=== PATIENT | male | born 1985 | race Caucasian/White ===

== ENCOUNTER 2024-07-02 21:33 | Emergency (ER) | payer SELFPAY ==
[2024-07-02 21:34] VITALS: BP 153/94
--- NOTE | 2024-07-02 21:57 | ED.SKININJ ---
HPI-Injury
General
Chief Complaint: Skin Surface Trauma
Source: patient
Exam Limitations: none
Time Seen by Provider: 07/02/24 21:52
Nursing documentation reviewed up to this point in time: agreed with
History of Present Illness-Injury
Is this injury a work related problem?: Yes
Is pt an associate of [facility]/[employer]?: No
Initial Injury comments:
39 yo male cut left middle finger pad on knife at work ([employer]) within the past few hours. Couldn't get it to stop bleeding. Unknown last Tdap.
Past History
Past History
ED Past Medical History: None
ED Past Surgical History: None
Social History
Tobacco: Non-smoker
Alcohol: Occasional
Personal:
Living: with family
Employment: Employed
Review of Systems
Review of Systems
Allergies reviewed?: Yes
All Other Systems: ROS reviewed and negative except as documented in HPI and ROS
Skin: Reports other (cut left middle finger)
Skin Exam
Laceration
Left middle finger pad:
Length in cm: 1
Orientation: horizontal
Type of Laceration: simple
Any active bleeding?: no active bleeding
Distal skin color and temperature: normal-warm & good color
Normal distal neurovascular exam: Yes
Range of motion: full
Phy Exam
Physical Exam
Physical Exam:
PHYSICAL EXAMINATION:
General: no apparent distress, not acutely ill
Neuro: alert and oriented.
Psychiatric: well kept. interactive and cooperative
Musculoskeletal: Moves with ease
Skin: Warm, pink.
Course
Orders/Labs/Results
Orders:
Orders
07/02/24 21:53
Tetanus/Diphth/Acelpertussis [Adacel] 0.5 ml IM .ONCE ONE
Vital Signs
Initial and Last Documented VS:
Initial Vital Signs
Temp Pulse Resp BP Pulse Ox
98.2 F 95 20 153/94 98
07/02/24 21:34 07/02/24 21:34 07/02/24 21:34 07/02/24 21:34 07/02/24 21:34
Last Documented Vital Signs
Temp Pulse Resp BP Pulse Ox
98.2 F 95 20 145/90 98
07/02/24 21:34 07/02/24 21:34 07/02/24 21:34 07/02/24 22:05 07/02/24 21:34
MDM/Problems Addressed
MDM/Problems Addressed:
39 yo male cut left middle finger pad on knife at work ([employer]) within the past few hours. Couldn't get it to stop bleeding. Unknown last Tdap.
No bleeding currently.
Relatively superficial laceration, wound glue applied, Band-Aid and fingertip aluminum splint for protection
Tdap updated
*Critical Care Note
Total Time (30-74mins, 75-104mins- exclusive of procedures): Not Applicable
ED Attending Note
-
Portions of this chart may have been created with voice recognition software.� Occasional wrong word or��sound alike� substitutions may have occurred due to the inherent limitations of voice recognition software.
Discharge Plan
Departure
Patient Disposition: Home (Routine Discharge)
Date of Disposition: 07/02/24
Time of Disposition: 22:02
Patient with high blood pressure during this ER visit?: No
Condition: Good
Discharge Problem:
Laceration of finger
Referrals:
Gerri Pennington CRNP [Family Provider] -
Activity Restrictions/Additional Instructions:
As we discussed, wear the Band-Aid and the fingertip splint as needed for protection.
The glue will slough off within the next week or 2
Interventions
Interventions:
*Risk Screen - Suicide Last Done: 07/02/24 21:49
*General Assessment Last Done: 07/02/24 21:34
*Neglect/Abuse Screening Last Done: 07/02/24 21:49
*ED- Fall Risk Assessment Last Done: 07/02/24 22:06
*ED COVID-19 Vaccine History Last Done: 07/02/24 21:49
*Nursing Disposition Last Done: 07/02/24 22:06
ED-Skin Assessment Last Done: 07/02/24 22:06
Discharge Date and Time
Discharge Date/Time: 07/02/24 22:07
Print Language: UKRAINIAN
[2024-07-02] MEDS: ADACEL 0.5 ML IM (22:00)
[2024-07-02 22:05] VITALS: BP 145/90
== END 2024-07-02 22:07 | disposition home or self-care (01) ==
LOC: EMR 21:33
PROVIDERS: EMERGENCY PHYSICIAN Emergency Medicine; FAMILY PHYSICIAN Nurse Practitioner Adult Health
DX: S61.213A Laceration without foreign body of left middle finger without damage to nail, initial encounter (principal); W26.0XXA Contact with knife, initial encounter; Y99.0 Civilian activity done for income or pay; Z23 Encounter for immunization
CPT/HCPCS: 90471; 12001; 99282; 90715